=== PATIENT | male | born 1950 | race Caucasian/White ===

== ENCOUNTER 2016-05-12 08:14 | Inpatient (IN) | payer MEDICARE ==
[2016-05-12] MEDS ORDERED: IPRATROPIUM-ALBUTEROL 3 ML NEB INHALATION STA (08:38)
--- NOTE | 2016-05-12 08:42 | ED ---
SOB HPI - General Chief Complaint: Shortness of Breath Stated Complaint: Sob/cough Time Seen by Provider: 05/12/16 08:25 Source: patient, RN notes reviewed Mode of arrival: wheelchair Limitations: no limitations - History of Present Illness Initial Comments: This is a 66-year-old male history of heart disease with recent stent placement who states he had the onset over the last 5 days of a cough some shortness of breath. He states get somewhat worse with fevers chills or sweats he also sharp chest pain last night 5-6/10 severity with mom then go away, and they go away last perhaps 1-2 minutes. He has no chest pain at this time. Is exertional dyspnea. He has a cough that is sometimes dry sometimes productive. He also has had some rhinorrhea. MD Complaint: shortness of breath, cough, chest pain - Related Data Home Medications Medication Instructions Recorded Confirmed LORazepam [Lorazepam] 1 mg PO HS PRN 12/17/15 05/12/16 Atorvastatin [Lipitor] 40 mg PO HS 01/13/16 05/12/16 Isosorbide Mononitrate ER [Imdur] 30 mg PO QAM 01/13/16 05/12/16 Aspirin 81 mg PO DAILY 05/12/16 05/12/16 HYDROcodone/APAP 5-325MG [[place] 1 tab PO TID PRN 05/12/16 05/12/16 5-325] Lisinopril [Zestril] 10 mg PO DAILY 05/12/16 05/12/16 Metoprolol Succinate [Toprol XL] 100 mg PO HS 05/12/16 05/12/16 Previous Rx's Medication Instructions Recorded Clopidogrel [Plavix] 75 mg PO DAILY #90 tab 01/15/16 Nitroglycerin Sl Tabs [Nitrostat] 0.4 mg SUBLINGUAL Q5M PRN #25 tab 01/15/16 Allergies Allergy/AdvReac Type Severity Reaction Status Date / Time Iodinated Contrast Media - Allergy Unknown Verified 05/12/16 08:23 Oral and [Iodinated Contrast Media - IV Dye] simvastatin [From Zocor] Allergy Unknown Verified 05/12/16 08:23 Review of Systems ROS Statement: Those systems with pertinent positive or pertinent negative responses have been documented in the HPI. ROS Other: All systems not noted in ROS Statement are negative. Past Medical History Past Medical History: Coronary Artery Disease (CAD), Chest Pain / Angina, COPD, Diabetes Mellitus, Hyperlipidemia, Hypertension, Myocardial Infarction (DC), Osteoarthritis (OA), Pneumonia Additional Past Medical History / Comment(s): BRONCHITIS. DIET CONTROLLED DIABETIC. GENERALIZED ARTHRITIC PAIN. Last Myocardial Infarction Date:: JANUARY 1999 History of Any Multi-Drug Resistant Organisms: None Reported Past Surgical History: Coronary Bypass/CABG, Heart Catheterization, Orthopedic Surgery Additional Past Surgical History / Comment(s): 01/14/16 PTCA with 2 stents to proximal RCA. Other hx: 1998 CABG 4 veseels at [facility] in [place] , RIGHT ANKLE ligament surgery, deviated septum surgery, bilateral cataracts with lens implants. Past Anesthesia/Blood Transfusion Reactions: No Reported Reaction Additional Past Anesthesia/Blood Transfusion Reaction / Comment(s): Pt is uncertain if he has ever received blood. Past Psychological History: Anxiety Additional Psychological History / Comment(s): Pt resides with his spouse. He uses a cane prn. He drives. He takes ativan for anxiety and states it works well. Smoking Status: Current every day smoker Past Alcohol Use History: Rare Additional Past Alcohol Use History / Comment(s): SMOKED FOR 25 YRS, 1PPD, quit for 10 yrs and resumes smoking 6 yrs ago. About the past 3 months he has tapered down from 1 ppd to 1 pack per week. Past Drug Use History: None Reported - Past Family History Mother Family Medical History: Chest Pain / Angina Additional Family Medical History / Comment(s): Uti's, obese. Mother at the age of 89yrs. Father Family Medical History: Myocardial Infarction (DC) Additional Family Medical History / Comment(s): Father at the age of 70 yrs. He has a DC at the age of 60yrs. General Exam - General Exam Comments Initial Comments: This is a well-developed well-nourished awake alert oriented 3 male Limitations: no limitations General appearance: alert, in no apparent distress Head exam: Present: atraumatic, normocephalic, normal inspection Eye exam: Present: normal appearance, PERRL, EOMI. Absent: scleral icterus, conjunctival injection, periorbital swelling ENT exam: Present: normal exam, mucous membranes moist Neck exam: Present: normal inspection. Absent: tenderness, meningismus, lymphadenopathy Respiratory exam: Present: wheezes, decreased breath sounds. Absent: respiratory distress, rales, rhonchi, stridor, chest wall tenderness Cardiovascular Exam: Present: regular rate, normal rhythm, normal heart sounds. Absent: systolic murmur, diastolic murmur, rubs, gallop, clicks GI/Abdominal exam: Present: soft, normal bowel sounds. Absent: distended, tenderness, guarding, rebound, rigid Extremities exam: Present: normal inspection, full ROM, normal capillary refill. Absent: tenderness, pedal edema, joint swelling, calf tenderness Back exam: Present: normal inspection Neurological exam: Present: alert, oriented X3, CN II-XII intact Psychiatric exam: Present: normal affect, normal mood Skin exam: Present: warm, dry, intact, normal color. Absent: rash Course Vital Signs 05/12/16 05/12/16 05/12/16 08:19 08:52 08:59 Temperature 97.2 F L Pulse Rate 62 64 66 Respiratory 18 Rate Blood Pressure 125/71 O2 Sat by Pulse 98 Oximetry 05/12/16 05/12/16 05/12/16 09:04 09:50 10:43 Temperature 98.9 F Pulse Rate 69 60 Respiratory 18 16 20 Rate Blood Pressure 124/71 153/89 O2 Sat by Pulse 96 97 Oximetry - Reevaluation(s) Reevaluation #1: 05/12/16 11:50 Patient will be admitted I did discuss the findings with him he does have evidence a left lower lobe pneumonia including COPD exacerbation and hypoxemia. Reevaluation #2: 05/12/16 11:50 The patient did refuse the EKG. Medical Decision Making - Lab Data Result diagrams: 05/12/16 08:55 05/12/16 08:55 Lab Results 05/12/16 05/12/16 05/12/16 Range/Units 08:55 08:55 08:55 WBC 6.1 (3.8-10.6) k/uL RBC 4.93 (4.30-5.90) m/uL Hgb 15.3 (13.0-17.5) gm/dL Hct 44.9 (39.0-53.0) % MCV 91.0 (80.0-100.0) fL MCH 31.1 (25.0-35.0) pg MCHC 34.2 (31.0-37.0) g/dL RDW 13.2 (11.5-15.5) % Plt Count 136 L (150-450) k/uL Neutrophils % 66 % Lymphocytes % 20 % Monocytes % 8 % Eosinophils % 3 % Basophils % 1 % Neutrophils # 4.0 (1.3-7.7) k/uL Lymphocytes # 1.2 (1.0-4.8) k/uL Monocytes # 0.5 (0-1.0) k/uL Eosinophils # 0.2 (0-0.7) k/uL Basophils # 0.1 (0-0.2) k/uL PT (9.0-12.0) sec INR (<1.1) APTT (22.0-30.0) sec Sodium 140 (137-145) mmol/L Potassium 4.5 (3.5-5.1) mmol/L Chloride 105 (98-107) mmol/L Carbon Dioxide 22 (22-30) mmol/L Anion Gap 13 mmol/L BUN 12 (9-20) mg/dL Creatinine 0.70 (0.66-1.25) mg/dL Est GFR (MDRD) Af Amer >60 (>60 ml/min/1.73 sqM) Est GFR (MDRD) Non-Af >60 (>60 ml/min/1.73 sqM) Glucose 138 H (74-99) mg/dL Calcium 9.2 (8.4-10.2) mg/dL Magnesium 1.9 (1.6-2.3) mg/dL Total Bilirubin 0.9 (0.2-1.3) mg/dL AST 43 (17-59) U/L ALT 85 H (21-72) U/L Alkaline Phosphatase 59 (38-126) U/L Total Creatine Kinase 98 (55-170) U/L CK-MB (CK-2) 0.9 (0.0-2.4) ng/mL CK-MB (CK-2) Rel Index 0.9 Troponin I <0.012 (0.000-0.034) ng/mL NT-Pro-B Natriuret Pep pg/mL Total Protein 6.8 (6.3-8.2) g/dL Albumin 4.1 (3.5-5.0) g/dL Influenza Type A RNA (Not Detectd) Influenza Type B (PCR) (Not Detectd) 05/12/16 05/12/16 05/12/16 Range/Units 08:55 08:55 09:01 WBC (3.8-10.6) k/uL RBC (4.30-5.90) m/uL Hgb (13.0-17.5) gm/dL Hct (39.0-53.0) % MCV (80.0-100.0) fL MCH (25.0-35.0) pg MCHC (31.0-37.0) g/dL RDW (11.5-15.5) % Plt Count (150-450) k/uL Neutrophils % % Lymphocytes % % Monocytes % % Eosinophils % % Basophils % % Neutrophils # (1.3-7.7) k/uL Lymphocytes # (1.0-4.8) k/uL Monocytes # (0-1.0) k/uL Eosinophils # (0-0.7) k/uL Basophils # (0-0.2) k/uL PT 11.2 (9.0-12.0) sec INR 1.1 (<1.1) APTT 24.2 (22.0-30.0) sec Sodium (137-145) mmol/L Potassium (3.5-5.1) mmol/L Chloride (98-107) mmol/L Carbon Dioxide (22-30) mmol/L Anion Gap mmol/L BUN (9-20) mg/dL Creatinine (0.66-1.25) mg/dL Est GFR (MDRD) Af Amer (>60 ml/min/1.73 sqM) Est GFR (MDRD) Non-Af (>60 ml/min/1.73 sqM) Glucose (74-99) mg/dL Calcium (8.4-10.2) mg/dL Magnesium (1.6-2.3) mg/dL Total Bilirubin (0.2-1.3) mg/dL AST (17-59) U/L ALT (21-72) U/L Alkaline Phosphatase (38-126) U/L Total Creatine Kinase (55-170) U/L CK-MB (CK-2) (0.0-2.4) ng/mL CK-MB (CK-2) Rel Index Troponin I (0.000-0.034) ng/mL NT-Pro-B Natriuret Pep 137 pg/mL Total Protein (6.3-8.2) g/dL Albumin (3.5-5.0) g/dL Influenza Type A RNA Not Detected (Not Detectd) Influenza Type B (PCR) Not Detected (Not Detectd) Critical Care Time Critical Care Time: Yes Critical Care Time: 31 minutes of critical care time which includes initial encounter with history physical labs x-rays reevaluation the patient's response to therapy. Evaluation of old charting that was available. Discussion with the admitting physician and admission orders. Documentation of the above. Disposition Clinical Impression: Left lower lobe pneumonia, Acute exacerbation of chronic obstructive airways disease, Adult respiratory distress syndrome Disposition: ADMITTED IP TO THIS HOSP Condition: Stable
[2016-05-12 09:08] LABS: Basophils # (A) 0.1 k/uL (0-0.2); Basophils % (A) 1 %; CH 32.1; CHCM 35.5; Eosinophils # (A) 0.2 k/uL (0-0.7); Eosinophils % (A) 3 %; HCT 44.9 % (39.0-53.0); HDW 2.84; HGB 15.3 gm/dL (13.0-17.5); Luc # (Auto) 0.15; Luc % (Auto) 2; Lymphocytes # (A) 1.2 k/uL (1.0-4.8); Lymphocytes % (A) 20 %; MCH 31.1 pg (25.0-35.0); MCHC 34.2 g/dL (31.0-37.0); Monocytes # (A) 0.5 k/uL (0-1.0); Monocytes % (A) 8 %; Neutrophils % (A) 66 %; RBC 4.93 m/uL (4.30-5.90); RDW 13.2 % (11.5-15.5); WBC 6.1 k/uL (3.8-10.6); WBC (Perox) 5.74
[2016-05-12 09:21] LABS: INR 1.1 (<1.1); Partial Thromboplastin Time 24.2 sec (22.0-30.0); Prothrombin Time 11.2 sec (9.0-12.0)
--- NOTE | 2016-05-12 09:26 | XR ---
EXAMINATION TYPE: XR chest 2V DATE OF EXAM: 05/12/2016 9:16 AM COMPARISON: NONE HISTORY: Shortness of breath TECHNIQUE: Frontal and lateral views of the chest are obtained. FINDINGS: Scattered senescent parenchymal changes noted. Hyperinflation compatible with COPD. Mild patchy density left lower lobe may reflect atelectasis or developing infiltrate. Heart size is mildly enlarged. Mediastinal structures are stable and grossly unremarkable. No evidence for hilar prominence. Degenerative changes dorsal spine. IMPRESSION: 1. Mild patchy density left lower lobe may reflect atelectasis or developing infiltrate.
[2016-05-12 09:30] LABS: ALT 85 U/L (21-72); AST 43 U/L (17-59); Alkaline Phosphatase 59 U/L (38-126); Anion Gap 13 mmol/L; Blood Urea Nitrogen 12 mg/dL (9-20); Calcium 9.2 mg/dL (8.4-10.2); Carbon Dioxide 22 mmol/L (22-30); Chloride 105 mmol/L (98-107); Glucose 138 mg/dL (74-99); Magnesium 1.9 mg/dL (1.6-2.3); Non-African American GFR(MDRD) >60 (>60 ml/min/1.73 sqM); Potassium 4.5 mmol/L (3.5-5.1); Sodium 140 mmol/L (137-145); Total Bilirubin 0.9 mg/dL (0.2-1.3); Total Protein 6.8 g/dL (6.3-8.2)
[2016-05-12 09:51] LABS: Creatine Kinase 98 U/L (55-170)
[2016-05-12] MEDS ORDERED: ACETAMINOPHEN TAB 500 MG TAB PO STA (10:01)
[2016-05-12 10:04] LABS: Creatine Kinase MB 0.9 ng/mL (0.0-2.4); Troponin I <0.012 ng/mL (0.000-0.034)
[2016-05-12] MEDS ORDERED: PNEUMONIA PROTOCOL UTILIZED 1 EACH MISC PO PRN (11:52)
[2016-05-12] MEDS ORDERED: NITROGLYCERIN SL TABS 0.4 MG TAB SUBLINGUAL PRN (11:56)
[2016-05-12] MEDS ORDERED: AZITHROMYCIN 500 MG in SODIUM CHLORIDE 0.9% 250 ML IVPB STA (11:58)
[2016-05-12] MEDS: methylPREDNISolone SOD SUCCI 125 MG/2 ML VIAL IV SCH ×3 (12:11→23:44)
[2016-05-12] MEDS: SODIUM CHLORIDE 0.9% 1,000 ML IV SCH (12:12)
[2016-05-12] MEDS: IPRATROPIUM-ALBUTEROL 3 ML NEB INHALATION SCH ×4 (14:33→23:52)
[2016-05-12] MEDS: HYDROcodone/APAP 5-325MG 1 EACH TAB PO PRN ×2 (14:36→20:45)
[2016-05-12 17:18] LABS: Glucose,Whole Blood 252 mg/dL (75-99)
[2016-05-12] MEDS: INSULIN LISPRO (humaLOG) 300 UNIT/3 ML VIAL SQ SCH ×2 (17:44→21:28)
[2016-05-12 19:31] LABS: Hemoglobin A1C 6.8 % (4.2-6.1)
--- NOTE | 2016-05-12 20:52 | HP ---
CHIEF COMPLAINT: Shortness of breath. HISTORY OF PRESENT ILLNESS: Mr. Olivarez is a 66-year-old male with a known history of coronary artery disease, status post stent placement x2 recently, hypertension, hyperlipidemia, morbid obesity, history of borderline diabetes mellitus not on any medication now, previous history of smoking, quit 6 months back and chronic bronchitis, came to the hospital with complaints of chest congestion and cough with minimal sputum production, worsening for the past 1 week. Apparently the patient has been having this congestion for a month ago and patient's last hospital admission was on March 24, where he had a stent placement at [facility]. Patient also had a previous stent placement on January [address] Sparkle jimenes at [facility]. Otherwise, patient denied any nausea or vomiting, abdominal pain. No diarrhea. Patient does have a subjective fever and chills and also felt sharp chest pain last night, 5 to 6 severity, lasted about 1 to 2 minutes. No excessive diaphoresis. No headache or dizziness, lightheadedness. No sick contacts at home. Patient does have chest congestion and rhinorrhea a couple of days back. REVIEW OF SYSTEMS: CONSTITUTIONAL: Patient does have subjective fevers and chills. No weakness, malaise. Patient does have weight gain. CARDIOVASCULAR: No chest pain. Patient does have short of breath. No leg swelling. RESPIRATORY: Patient does have cough with minimal sputum production, whitish. Short of breath. ABDOMEN: No nausea, vomiting or abdominal pain. GENITOURINARY: Negative. ENDOCRINE: Negative. PSYCHIATRY: Negative. SKIN: Negative. MUSCULOSKELETAL: Negative. All other 14-point review of systems negative except as above. Past medical history includes: 1. Coronary artery disease, history of stent placement x2: One on January 14, 2016 and March 24, 2016. 2. Chest pain/angina. 3. COPD. 4. Borderline diabetes history, not on any medication now. 5. Hypertension. 6. Hyperlipidemia. 7. History of [place]. 8. Osteoarthritis. 9. History of frequent pneumonia as per the patient. PAST SURGICAL HISTORY: 1. Coronary artery bypass graft in 1998. 2. Cardiac catheterization. 3. PTCA with 2 stents to proximal RCA. 4. Right ankle ligament surgery. 5. Deviated septum surgery. 6. Bilateral cataracts with lens implants. PSYCHOSOCIAL HISTORY: Anxiety. SOCIAL HISTORY: Patient lives with his . He uses a cane as needed. Quit smoking and patient was an everyday smoker until December 2015, smoker for 25 years, 1 pack per day, quit 10 years and then resume smoking 6 years ago. Denied alcohol use. Denied any drugs or IVDU. FAMILY HISTORY: Mother had chest pain, angina and UTIs and obese. Father has a history of [place]. ALLERGIES INCLUDE: 1. IODINATED CONTRAST MEDIA. 2. ZOCOR. Home medication include: 1. Lorazepam. 2. Lipitor. 3. Imdur. 4. Aspirin. 5. [place]. 6. Zestril. 7. Metoprolol. PHYSICAL EXAMINATION: A 66-year-old male lying in the bed; morbidly obese, no apparent distress at this time. VITALS: Blood pressure is 124/71, pulse rate is 62, respiratory rate 18, temperature afebrile, pulse ox 98% on room air. HEENT: Atraumatic, normocephalic. Neck is supple. No JVD. CVS: S1, S2 heard. No murmurs. No gallop. LUNGS: Bilateral air entry is present. Rhonchi at the bases, mainly on the left side and bronchial sounds present and minimal wheezing. Abdomen is soft, nontender. Bowel sounds are present. MANAGER ROUTE: Awake, alert, oriented x3. No focal neurological deficit. EXTREMITIES: No edema. Pulses palpable bilaterally. No clubbing or cyanosis. PSYCHIATRIC: Cooperative. LABORATORY DATA: WBC 6.1, hemoglobin 15.3, platelets 136, INR 1.1. Sodium 140, potassium 4.5, chloride 105, bicarb is 22, BUN 12, creatinine 0.7, blood sugar is 138. ALT is 85. Albumin 4.1. Influenza type A and B negative. Chest x-ray showed a mild patchy density in the left lower lobe, may reflect atelectasis or developing infiltrate. IMPRESSION: 1. Acute left lower lobe pneumonia. 2. Chronic obstructive pulmonary disease exacerbation secondary to above. 3. Morbid obesity with a body mass index of 35.9. 4. History of coronary artery disease, status post stent placement x2 recently. 5. Hypertension. 6. Diet-controlled diabetes mellitus. 7. History of nicotine addiction, quit, quit 3 months ago. 8. History of myocardial infarction. 9. Hyperlipidemia. 10. Previous history of multiple pneumonias. DISCUSSION AND PLAN: Patient will be continued on antibiotics in the form of ceftriaxone and azithromycin and continue with the breathing treatments and steroids in the form of methylprednisolone 60 mg every 6 hourly and continue to follow closely and continue the home medications. Further recommendations based on the clinical course. Heparin subcu for DVT prophylaxis.
[2016-05-12] MEDS ORDERED: BENZOCAINE/MENTHOL LOZENG 1 EACH LOZENGE MUCOUS MEM PRN (20:54)
[2016-05-12 21:07] LABS: Glucose,Whole Blood 270 mg/dL (75-99)
[2016-05-12] MEDS: ATORVASTATIN 40 MG TAB PO SCH (21:26)
[2016-05-12] MEDS: METOPROLOL SUCCINATE (ER) 100 MG TAB.ER.24H PO SCH (21:27)
[2016-05-12] MEDS: LISINOPRIL 10 MG TAB PO SCH (21:27)
[2016-05-12] MEDS: HEPARIN SODIUM,PORCINE 5,000 UNIT/ML 1 ML VIAL SQ SCH (23:44)
[2016-05-12] MEDS: LORazepam 1 MG TAB PO PRN (23:44)
[2016-05-13] MEDS: IPRATROPIUM-ALBUTEROL 3 ML NEB INHALATION SCH ×6 (03:49→20:46)
[2016-05-13] MEDS: methylPREDNISolone SOD SUCCI 125 MG/2 ML VIAL IV SCH ×4 (05:41→23:17)
--- NOTE | 2016-05-13 06:43 | XR ---
EXAMINATION TYPE: XR chest 2V DATE OF EXAM: 05/13/2016 6:31 AM COMPARISON: Chest x-ray from yesterday. HISTORY: Pneumonia progress study. TECHNIQUE: Frontal and lateral views of the chest are obtained. FINDINGS: Sternal wires and mediastinal clips are redemonstrated. There is chronic emphysematous mar nge with improved aeration left lung base. There is no new focal airspace opacity, pleural effusion, or pneumothorax seen bilaterally. Cardiac silhouette size is stable and mildly enlarged with atherosc lerotic thoracic aorta. Osseous structures are intact. IMPRESSION: Chronic emphysematous change and cardiomegaly with resolving left basilar infiltrate, no new infiltrate is seen.
[2016-05-13 06:47] LABS: Glucose,Whole Blood 205 mg/dL (75-99)
[2016-05-13] MEDS: HEPARIN SODIUM,PORCINE 5,000 UNIT/ML 1 ML VIAL SQ SCH ×3 (07:59→21:45)
[2016-05-13] MEDS: INSULIN LISPRO (humaLOG) 300 UNIT/3 ML VIAL SQ SCH ×4 (07:59→21:14)
[2016-05-13] MEDS: CLOPIDOGREL 75 MG TAB PO SCH (07:59)
[2016-05-13] MEDS: ASPIRIN 81 MG CHEW PO SCH (07:59)
[2016-05-13] MEDS: ISOSORBIDE MONONITRATE ER 30 MG TAB.ER.24H PO SCH (08:00)
[2016-05-13] MEDS ORDERED: LISINOPRIL 10 MG TAB PO SCH (09:00)
[2016-05-13] MEDS: HYDROcodone/APAP 5-325MG 1 EACH TAB PO PRN ×3 (10:38→21:16)
[2016-05-13] MEDS: AZITHROMYCIN 500 MG TAB PO SCH (11:40)
[2016-05-13 12:09] LABS: Glucose,Whole Blood 218 mg/dL (75-99)
[2016-05-13 16:50] LABS: Glucose,Whole Blood 301 mg/dL (75-99)
[2016-05-13] MEDS: FORMOTEROL FUMARATE 20 MCG/2 ML NEBU INHALATION SCH (20:22)
[2016-05-13] MEDS: BUDESONIDE 0.5 MG/2 ML NEBU INHALATION SCH (20:22)
[2016-05-13] MEDS ORDERED: IPRATROPIUM-ALBUTEROL 3 ML NEB INHALATION PRN (20:46)
[2016-05-13 20:50] LABS: Glucose,Whole Blood 263 mg/dL (75-99)
[2016-05-13] MEDS: METOPROLOL SUCCINATE (ER) 100 MG TAB.ER.24H PO SCH (21:14)
[2016-05-13] MEDS: ATORVASTATIN 40 MG TAB PO SCH (21:14)
[2016-05-13] MEDS: LISINOPRIL 10 MG TAB PO SCH (21:14)
[2016-05-13] MEDS: SODIUM CHLORIDE 0.9% 1,000 ML IV SCH (23:17)
[2016-05-13] MEDS: LORazepam 1 MG TAB PO PRN (23:17)
[2016-05-14] MEDS: methylPREDNISolone SOD SUCCI 125 MG/2 ML VIAL IV SCH ×2 (06:09→12:07)
[2016-05-14 07:00] LABS: Glucose,Whole Blood 264 mg/dL (75-99)
[2016-05-14 07:32] LABS: Basophils % (A) 0 %; CH 31.2; CHCM 34.3; Eosinophils % (A) 0 %; HCT 42.5 % (39.0-53.0); HDW 2.74; HGB 14.6 gm/dL (13.0-17.5); Luc # (Auto) 0.13; Luc % (Auto) 1; Lymphocytes # (A) 1.1 k/uL (1.0-4.8); Lymphocytes % (A) 9 %; MCH 31.5 pg (25.0-35.0); MCHC 34.4 g/dL (31.0-37.0); MCV 91.5 fL (80.0-100.0); Mean Platelet Volume 8.3; Monocytes # (A) 0.4 k/uL (0-1.0); Monocytes % (A) 3 %; Neutrophils # (A) 11.5 k/uL (1.3-7.7); Neutrophils % (A) 87 %; RBC 4.64 m/uL (4.30-5.90); RDW 13.3 % (11.5-15.5); WBC 13.3 k/uL (3.8-10.6); WBC (Perox) 13.72
[2016-05-14 07:46] LABS: Anion Gap 14 mmol/L; Blood Urea Nitrogen 20 mg/dL (9-20); Calcium 9.8 mg/dL (8.4-10.2); Carbon Dioxide 22 mmol/L (22-30); Chloride 103 mmol/L (98-107); Glucose 270 mg/dL (74-99); Non-African American GFR(MDRD) >60 (>60 ml/min/1.73 sqM); Potassium 4.7 mmol/L (3.5-5.1); Sodium 139 mmol/L (137-145)
[2016-05-14] MEDS ORDERED: IPRATROPIUM-ALBUTEROL 3 ML NEB INHALATION SCH (08:00)
[2016-05-14] MEDS: BUDESONIDE 0.5 MG/2 ML NEBU INHALATION SCH (08:00)
[2016-05-14] MEDS: FORMOTEROL FUMARATE 20 MCG/2 ML NEBU INHALATION SCH (08:00)
[2016-05-14] MEDS: HEPARIN SODIUM,PORCINE 5,000 UNIT/ML 1 ML VIAL SQ SCH (08:11)
[2016-05-14] MEDS: ISOSORBIDE MONONITRATE ER 30 MG TAB.ER.24H PO SCH (08:21)
[2016-05-14] MEDS: AZITHROMYCIN 500 MG TAB PO SCH (08:21)
[2016-05-14] MEDS: INSULIN LISPRO (humaLOG) 300 UNIT/3 ML VIAL SQ SCH ×2 (08:22→12:43)
[2016-05-14] MEDS: CLOPIDOGREL 75 MG TAB PO SCH (08:22)
[2016-05-14] MEDS: ASPIRIN 81 MG CHEW PO SCH (08:22)
--- NOTE | 2016-05-14 09:17 | PN ---
DATE OF SERVICE: 05/13/2016 INTERVAL HISTORY: Mr. Olivarez is a 66-year-old male with known history of coronary artery disease and stent placement, hypertension, hyperlipidemia, morbid obesity, history of borderline diabetes mellitus not on any medication now, and previous history of smoking, admitted to the hospital with chest congestion, cough and sputum production, worsening for the past one week. Patient recently had cardiac catheterization and stent placement at [facility]. Apparently the patient says that his breathing is improved now. He is currently being treated for possible pneumonia as well as COPD acute exacerbation. The patient says that he quit smoking about 3 months back. REVIEW OF SYSTEMS: CONSTITUTIONAL: No fever, no chills, no weakness. RESPIRATORY: Patient does have cough with minimal sputum production and short of breath. CARDIOVASCULAR: No chest pain. Leg swelling. ABDOMEN: No nausea, vomiting or abdominal pain. : No dysuria or hematuria. PSYCHIATRY: Negative. SKIN: Negative. All other 14-point review of systems negative except as above. CURRENT MEDICATIONS: Reviewed. PHYSICAL EXAMINATION: A 66-year-old man lying in bed comfortably, alert, oriented x3, no apparent distress. VITAL SIGNS: Blood pressure is 151/70, pulse is 87, respirations 16, temperature afebrile, pulse ox 94% on room air. HEENT: Normocephalic, atraumatic. NECK: Supple, no JVD. CVS: S1 and S2 heard. No murmur, no gallop, no rub. LUNGS: Bilateral diffuse wheezing positive with rhonchi, improved. No labored breathing. ABDOMEN: Soft, nontender. Bowel sounds present. PRESS ROOM SUPERVISOR: Awake, alert, oriented, x3. No focal deficit. EXTREMITIES: No edema. Pulses are palpable bilaterally. No clubbing or cyanosis. PSYCHIATRY: Anxious. SKIN: No rashes or bruises. Laboratory data reviewed. IMPRESSION: 1. Acute chronic obstructive pulmonary disease exacerbation with possible left lower lobe pneumonia which is ( ). 2. History of coronary artery disease status post recent stent placement. 3. Hypertension. 4. Diet-controlled diabetes mellitus. 5. History of nicotine addiction, quit 3 months back. 6. History of myocardial infarction. 7. History of hyperlipidemia. 8. History of multiple pneumonias in the past. RECOMMENDATIONS AND PLAN: The patient will be continued on antibiotics. ( ). Add Pulmicort and Perforomist. Follow closely. Possible discharge tomorrow. Continue current management. Further recommendations based on clinical course.
[2016-05-14] MEDS: HYDROcodone/APAP 5-325MG 1 EACH TAB PO PRN (11:06)
[2016-05-14 11:57] VITALS: BP 106/54; PULSE 81; RESP 20; TEMP 98
[2016-05-14 12:34] LABS: Glucose,Whole Blood 298 mg/dL (75-99)
--- NOTE | 2016-05-15 08:55 | DS ---
DATE OF ADMISSION: 05/14/2016 DATE OF DISCHARGE: 05/14/2016 The patient is admitted secondary to chronic obstructive pulmonary disease exacerbation. Patient is clinically doing well and will be discharged today. Patient will be initiated on weaning dose of steroids and inhalational steroids along with ipratropium and albuterol. Patient will be discharged today. Patient was seen and examined on the day of discharge. Vitals are stable. PHYSICAL EXAMINATION: GENERAL: The patient is alert and oriented x3, not in any acute distress. Well developed, well nourished. HEENT: Pupils are round and equally reacting to light. EOMI. No scleral icterus. No conjunctival pallor. Normocephalic, atraumatic. No pharyngeal erythema. No thyromegaly. CARDIOVASCULAR: S1 and S2 present. No murmurs, rubs, or gallops. PULMONARY: Chest is clear to auscultation, no wheezing or crackles. ABDOMEN: Soft, nontender, nondistended, normoactive bowel sounds. No palpable organomegaly. MUSCULOSKELETAL: No joint swelling or deformity. EXTREMITIES: No cyanosis, clubbing, or pedal edema. NEUROLOGICAL: Gross neurological examination did not reveal any focal deficits. SKIN: No rashes. ASSESSMENT AND PLAN: 1. Acute chronic obstructive pulmonary disease exacerbation. 2. Tracheobronchitis. 3. Coronary artery disease . 4. Hypertension. 5. Diet controlled diabetes mellitus, elevated blood sugars now due to systemic steroids. 6. Hyperlipidemia. 7. Patient does have leukocytosis secondary to systemic steroids. Please refer to my depart summary for further details of discharge medications. Patient will follow with Dr. Vitor Lopez in about 3 to 7 days. Activity as tolerated. Diabetic diet.
== END 2016-05-14 13:44 | disposition home or self-care (01) | DRG 190 ==
LOC: EC 08:14 → 3OBS 11:53 → OBSVTOIN 11:53 → INTOOBSV 05-14 08:50 → UNDODISIN 05-14 13:44
PROVIDERS: ADMIT Hospitalist; ATTEND Hospitalist
DX: J44.0 Chronic obstructive pulmonary disease with (acute) lower respiratory infection (principal); J18.9 Pneumonia, unspecified organism; E66.01 Morbid (severe) obesity due to excess calories; I10 Essential (primary) hypertension; E11.9 Type 2 diabetes mellitus without complications; D72.829 Elevated white blood cell count, unspecified; J44.1 Chronic obstructive pulmonary disease with (acute) exacerbation; E78.5 Hyperlipidemia, unspecified; F17.200 Nicotine dependence, unspecified, uncomplicated; F41.9 Anxiety disorder, unspecified; I25.10 Atherosclerotic heart disease of native coronary artery without angina pectoris; I25.2 Old myocardial infarction; T38.0X5A Adverse effect of glucocorticoids and synthetic analogues, initial encounter; M19.90 Unspecified osteoarthritis, unspecified site; Z68.35 Body mass index [BMI] 35.0-35.9, adult; Z79.82 Long term (current) use of aspirin; Z79.02 Long term (current) use of antithrombotics/antiplatelets; Z79.899 Other long term (current) drug therapy; Z95.5 Presence of coronary angioplasty implant and graft; Z95.1 Presence of aortocoronary bypass graft; Z87.01 Personal history of pneumonia (recurrent); Z88.8 Allergy status to other drugs, medicaments and biological substances; Z91.041 Radiographic dye allergy status; Z82.49 Family history of ischemic heart disease and other diseases of the circulatory system
CPT/HCPCS: 36415; 71020; 80048; 80053; 82550; 82553; 83036; 83735; 83880; 84484; 85025; 85610; 85730; 87040; 87502; 94640; 96365; 99291